=== PATIENT | male | born 1945 | race Caucasian/White ===

== ENCOUNTER 2017-07-01 08:18 | Day surgery (SDC) | payer MEDICARE, BC ==
[~2017-07-01] VITALS: Ht 177.8 cm; Wt 93.0 kg
--- NOTE | ~2017-07-01 | OP ---
Record Of Operation [facility] [address] [place]. [address] NAME: BRIGITTE BURNETT : 45 STATUS : [facility] UNIT#: [id number] AGE: 72 ADM/REG DATE : 07/01/17 MR#: [id number] REPORT SERV DATE: 07/01/17 DICTATED BY: Taylor RUANO DATE: 07/01/17 REPORT STATUS : Draft TRANSCRIBED BY: MODL DATE: 07/01/17 DATE OF PROCEDURE: 07/01/2017 PREOPERATIVE DIAGNOSIS: History of dense bulbar urethral stricture. POSTOPERATIVE DIAGNOSIS: Recurrent bulbar urethral stricture. PROCEDURE: Cystoscopy, urethral dilation, difficult Arcos catheter placement, examination under anesthesia. SURGEON: Taylor Ruano M.D. ANESTHESIA: General. COMPLICATIONS: None. DRAINS: A 22-Ethiopian two-way silicone-coated Arcos catheter. BRIEF HISTORY: Mr. Burnett is a 72-year-old white male with a history of prostate cancer, treated with external beam radiation and brachytherapy in 2003. He has history of urethral stricture disease and has had several dilations in the past. He has been on self catheterization with some success, although recently he has had increasing trouble both voiding and placing his catheter. We checked the culture recently and it was negative. He is here for cysto dilation under anesthesia. The risks of bleeding, infection, anesthesia, injury to adjacent organs, need for postoperative catheter etc. were all discussed. There were no unanswered questions. His last dilation prior to this was in 05/2015. He has been off his Coumadin for two days. DESCRIPTION OF PROCEDURE: Under excellent general anesthesia, the patient was prepped and draped in standard lithotomy position. Digital exam revealed a 1+ symmetric smooth prostate gland. Cystoscopy was performed with a 30-degree lens revealed a normal anterior urethra what appeared to be about the mid to proximal bulb with a dense stricture too small for scope passage lines. Therefore, inserted a short rigid ureteroscope and was able to negotiate this area into the bladder. I then placed a moveable core guidewire through the scope and softened the tip. Over this, the stricture was dilated from 14-Ethiopian to 24- Ethiopian with the Meza sounds. I then reinserted the cystoscope. The stricture was nicely opened. There was a nonobstructing prostate gland. The bladder showed [id number] trabeculation without tumors, stones, or foreign bodies, and normal orifices. I then modified a 22-Ethiopian silicone coated Arcos catheter by cutting off the tip and over the wire placed it per urethra. A 20 mL of sterile water were placed in the balloon. Good drainage was obtained. I plan to discharge Mr. Burnett as an outpatient with the following instructions. DISCHARGE INSTRUCTIONS: 1. Home today. 2. I would remove his catheter in about five to seven days. He can do that at home or Record Of Operation [address] [address] NAME: BRIGITTE BURNETT : 45 STATUS : [facility] PAT#: [id number] AGE: 72 ADM/REG DATE : 07/01/17 MR#: [id number] REPORT SERV DATE: 07/01/17 DICTATED BY: Taylor RUANO DATE: 07/01/17 REPORT STATUS : Draft TRANSCRIBED BY: GHISLAINE DATE: 07/01/17 follow up our office. 3. He should then resume self catheterization at least once a day and see me about three months postoperatively. 4. Hydrocodone 5/325 one to two p.o. q.4 hours p.r.n. pain, #20. 5. Continue Pyridium as previously ordered. CATHLEEN/GHISLAINE Taylor Ruano M.D. / [id number] CC: Eleni Valentine D.O. F.A.C.P.
[~2017-07-01 08:18] MED LIST: ASAB PO; BENTYL10 PO; C5; C5 PO; CIP5 PO; CRANBERRY400 MG OR; DURICEF PO; FERROUS SULF325 M1 PO; FL250 PO; FLOMAX4 PO; IRON325 MG PO; LOFIBRA67 MG PO; LORTAB 5 PO; LOVENOX SC; LYRICA75 PO; METHOC750B PO; NEUR300 PO; NEUR600 PO; OMNICEF300 PO; PENVK250 PO; PRILOSEC40 MG PO; PYR200 PO; REM15 PO; TEARS NATURA OPH; TEARS PURE OPH; TRILIPIX135 MG PO; ULTRACET PO; ULTRAM50 PO; VITAMIN D400 UNI1 PO; ZOL100 PO; ZOL50 PO; ZOLOFT
[2017-07-01 08:46] LABS: HEMATOCRIT 37.1 % (40.0-51.0); HEMOGLOBIN 12.2 g/dL (13.6-17.8)
[2017-07-01 08:56] LABS: BUN (BLOOD UREA NITROGEN) 15 MG/DL (6-23); CALCIUM, SERUM 8.5 MG/DL (8.5-10.4); CHLORIDE, SERUM 109 MMOL/L (96-112); CO2 (CARBON DIOXIDE) 25 MMOL/L (24-34); CREATININE 1.15 MG/DL (0.70-1.30); GFR AFRICAN AMERICAN 73 ML/MIN (>=60); GFR NON AFRICAN AMERICAN 63 ML/MIN (>=60); GLUCOSE, SERUM 114 MG/DL (60-99); SODIUM, SERUM 140 MMOL/L (135-148)
[2017-07-01 08:57] LABS: POTASSIUM, SERUM 4.7 MMOL/L (3.5-5.3)
[2017-07-01 08:59] LABS: INTERNATIONAL NORMAL RATI 1.3 UNITS (-); PROTIME (NOT ORD) 16.4 SEC (12.0-14.5)
== END 2017-07-01 14:34 | disposition home or self-care (01) ==
LOC: SDC 08:18
PROC: 0T7D8ZZ Dilation of Urethra, Via Natural or Artificial Opening Endoscopic (ICD-10-PCS; principal; 2017-07-01 09:30)
DX: N35.9 Urethral stricture, unspecified (principal); K44.9 Diaphragmatic hernia without obstruction or gangrene; K21.9 Gastro-esophageal reflux disease without esophagitis; M19.90 Unspecified osteoarthritis, unspecified site; M79.7 Fibromyalgia; D64.9 Anemia, unspecified; F41.9 Anxiety disorder, unspecified; F32.9 Major depressive disorder, single episode, unspecified; G62.9 Polyneuropathy, unspecified; F17.200 Nicotine dependence, unspecified, uncomplicated; Z79.01 Long term (current) use of anticoagulants; Z86.718 Personal history of other venous thrombosis and embolism; Z85.46 Personal history of malignant neoplasm of prostate; Z88.5 Allergy status to narcotic agent; Z90.49 Acquired absence of other specified parts of digestive tract; Z86.010 Personal history of colon polyps; Z85.820 Personal history of malignant melanoma of skin; Z98.890 Other specified postprocedural states; Z79.899 Other long term (current) drug therapy
CPT/HCPCS: 80048; 85014; 85018; 85610; 93005; A9270-GY; C1769; J2250; J2270; J2405; J3010

== ENCOUNTER 2017-07-07 15:40 | Emergency (ER) | payer MEDICARE, BC ==
[2017-07-07 16:21] LABS: BASOPHILS 0.5 %; BASOPHILS ABSOLUTE 0.05 10/3/uL (0.0-0.16); EOSINOPHILS 1.7 %; EOSINOPHILS ABSOLUTE 0.19 10/3/uL (0.0-0.53); ER CBC TAT 0 Hrs 10 Mins; HEMATOCRIT 39.2 % (40.0-51.0); HEMOGLOBIN 12.7 g/dL (13.6-17.8); IMMATURE GRANULOCYTES 0.5 %; IMMATURE GRANULOCYTES ABSOLUTE 0.05 10/3/uL (0.0-0.11); LYMPHOCYTES 18.3 %; LYMPHOCYTES ABSOLUTE 2.01 10/3/uL (0.67-4.30); MANUAL DIFF NO %; MEAN CORPUS HGB CONC 32.4 g/dL (32.0-36.0); MEAN CORPUSCULAR HEMOGLOB 29.3 pg (26.0-34.0); MEAN CORPUSCULAR VOLUME 90.5 fL (80-100); MEAN PLATELET VOLUME 9.2 fL (9.2-13.0); MONOCYTES 8.4 %; MONOCYTES ABSOLUTE 0.92 10/3/uL (0.21-1.20); NEUTROPHILS 70.6 %; NEUTROPHILS ABSOLUTE 7.75 10/3/uL (2.02-8.40); PLATELET COUNT 214 10/3/uL (150-400); RBC DISTRIBUTION WIDTH 14.2 % (12.0-16.0); RED CELL COUNT 4.33 10/6/uL (4.7-6.1)
[2017-07-07 16:30] LABS: ASCORBIC ACID (UR NOT ORDER) NEG (NEG); BILIRUBIN, URINE NEGATIVE (NEG); ER URINALYSIS TAT 0 Hrs 19 Mins; KETONE, URINE NEGATIVE (NEG); LEUKOCYTE ESTERASE(NOT OR TRACE (NEG); WBC (NOT ORDERED) (RFLEX) 19 (0-5)
[2017-07-07 16:33] LABS: NITRITE (URINE) NEG (NEG)
[2017-07-07 16:37] LABS: A/G RATIO 0.8 (0.7-1.9); ALBUMIN 3.8 G/DL (3.5-5.0); ALKALINE PHOSPHATASE 93 U/L (45-117); BUN (BLOOD UREA NITROGEN) 15 MG/DL (6-23); CALCIUM, SERUM 9.4 MG/DL (8.5-10.4); CHLORIDE, SERUM 106 MMOL/L (96-112); CO2 (CARBON DIOXIDE) 22 MMOL/L (24-34); CREATININE 1.08 MG/DL (0.70-1.30); GFR AFRICAN AMERICAN 79 ML/MIN (>=60); GFR NON AFRICAN AMERICAN 68 ML/MIN (>=60); GLOBULIN 4.7 G/DL (2.5-4.1); GLUCOSE, SERUM 121 MG/DL (60-99); POTASSIUM, SERUM 4.1 MMOL/L (3.5-5.3); SGOT(AST) 67 U/L (5-40); SGPT(ALT) 46 U/L (5-65); SODIUM, SERUM 140 MMOL/L (135-148); TOTAL BILIRUBIN 0.9 MG/DL (0-1.2); TOTAL PROTEIN 8.5 G/DL (6.0-8.5)
== END 2017-07-07 21:35 | disposition home or self-care (01) ==
LOC: ER 15:40
PROVIDERS: Emergency Medicine
DX: N39.0 Urinary tract infection, site not specified (principal); R31.9 Hematuria, unspecified; Z85.46 Personal history of malignant neoplasm of prostate; Z79.01 Long term (current) use of anticoagulants; Z79.899 Other long term (current) drug therapy
CPT/HCPCS: 74176; 80053; 81001; 83690; 85025; 96374; 96375; 99284; J2405